=== PATIENT | female | born 1995 | race Caucasian/White ===

== ENCOUNTER 2020-08-12 17:45 | Outpatient (REF) | payer SELFPAY ==
[2020-08-12 18:04] LABS: COVID-19 Test Negative (Negative)
== END 2020-08-12 17:46 | disposition home or self-care (01) ==
LOC: HO.LAB 17:45
PROVIDERS: Visit Provider Internal Medicine
DX: Z20.828 Contact with and (suspected) exposure to other viral communicable diseases (principal)
CPT/HCPCS: 87635

== ENCOUNTER 2020-08-29 18:08 | Outpatient (REF) | payer BC, SELFPAY ==
[2020-08-29 19:50] LABS: SARS COV2 PCR INHOUSE NEGATIVE (Negative)
== END 2020-08-29 18:09 | disposition home or self-care (01) ==
LOC: HO.LAB 18:08
PROVIDERS: Visit Provider Internal Medicine
DX: Z20.828 Contact with and (suspected) exposure to other viral communicable diseases (principal)
CPT/HCPCS: C9803; U0003